=== PATIENT | female | born 1945 | race Caucasian/White ===

== ENCOUNTER 2023-12-16 02:42 | Inpatient (IN) | payer MEDICARE, MEDICAID ==
[2023-12-16] MEDS ORDERED: NOREPINEPHRINE 8 MG/250 ML-D5W 250 ML ONE (02:48)
[2023-12-16] MEDS ORDERED: Ketamine In 0.9 % NaCl 50 MG/5 ML SYRINGE ONE ×2 (03:01→06:52)
[2023-12-16] MEDS ORDERED: Rocuronium Bromide 10 MG/ML (10ML VIAL) ONE ×2 (03:24→06:57)
[2023-12-16] MEDS ORDERED: EPINEPHrine 1 MG/ML VIAL ONE (03:38)
[2023-12-16] MEDS ORDERED: Cefepime 2 GM VIAL ONE (03:39)
[2023-12-16] MEDS ORDERED: Sodium Chloride 0.9% 100 ML ONE (03:39)
[2023-12-16] MEDS ORDERED: LevoFLOXacin 750 mg/D5W 150 ml Premix Bag ONE (03:39)
[2023-12-16 03:42] LABS: Hematocrit 35.4 % (36.0-47.0); Hemoglobin 11.3 g/dL (12.0-16.0); Mean Corpuscular HGB CONC 31.9 g/dL (32.0-36.0); Mean Corpuscular Hemoglobin 28.2 pg (27.0-31.0); Mean Corpuscular Volume 88.3 fL (78.0-98.0); Mean Platelet Volume 10.3 fL (7.4-10.4); Platelet Count 186 10x3/uL (130-400); RBC Distribution Width 15.7 % (11.5-14.5); Red Blood Cell (RBC) Count 4.01 mill/uL (4.20-5.40)
[2023-12-16 03:51] LABS: Actual Bicarbonate (HCO3a) 17.6 mEq/L (22-28); Analyzer IN Cardio ER; Base Excess (BEa) -4.6 mEq/L (-2.0 to +3.0); Calcium, Ionized (arterial) 1.11 mmol/L (1.12-1.30); Carboxyhemoglobin (COHb) 0.3 gm% (0.0-3.0); Hematocrit-ABG 34 % (36.0-47.0); Hemoglobin (Hb) 11.6 g/dL (12.0-16.0); O2 Tension (PaO2), arterial 368.9 mmHg (> 70.0); Potassium - ABG Lab 3.12 mmol/L (3.70-5.30); pH, Arterial 7.468 (7.35-7.45)
[2023-12-16 03:55] LABS: ALV-art Gradient 312.975 mmHg (0-20); CO2 Tension 24.9 mmHg (35.0-45.0); Puncture Site RRA
[2023-12-16 04:00] LABS: INR-International Normal Ratio 1.7; Prothrombin Time 20.3 sec (12.0-14.7)
[2023-12-16 04:07] LABS: ALT (SGPT) Less than 5 U/L (8-55); AST (SGOT) 24 U/L (5-34); Alkaline Phosphatase 262 U/L (40-110); Anion Gap 17 mmol/L (10-20); BUN (Urea Nitrogen) 55 mg/dL (9.8-20.1); Bilirubin, Total 0.6 mg/dL (0.2-1.2); Calc. Creatinine Clearance 0 mL/min (70-130); Calcium 8.6 mg/dL (7.8-10.44); Carbon Dioxide 16 mmol/L (23-31); Chloride 112 mmol/L (98-107); Estimated GFR 16; Globulin 3.7 g/dL (2.4-3.5); Glucose 126 mg/dL (83-110); Potassium 3.2 mmol/L (3.5-5.1); Protein, Total 5.7 g/dL (5.8-8.1); Sodium 142 mmol/L (136-145)
[2023-12-16 04:21] LABS: Band 23 % (5-11); Burr Cells SLIGHT = 2-5 cells HPF (0-1); Metamyelocyte 5 % (0-0); Monocytes 1 % (0-10); Neutrophil 71 % (42-75); Platelet Adequacy Comment Platelets Normal; Polychromasia SLIGHT = 2-3 cells HPF (0-2)
[2023-12-16 04:25] LABS: Troponin I 0.438 ng/mL (< 0.028)
[2023-12-16] MEDS ORDERED: Vasopressin 20 UNITS/ML VIAL ONE (04:30)
[2023-12-16] MEDS: Vancomycin (BATCH) 1.5 GM in Premix 1 BAG IVPB SCH (05:15)
[2023-12-16] MEDS ORDERED: fentaNYL PF 100 MCG/2 ML SYRINGE ONE (05:41)
[2023-12-16] MEDS ORDERED: PROPOFOL 20 ML ONE (05:41)
[2023-12-16] MEDS ORDERED: Iopamidol 30 ML ONE (05:53)
[2023-12-16] MEDS ORDERED: Albumin 5% 500 ML ONE (06:14)
[2023-12-16] MEDS ORDERED: Vasopressin 20 UNITS in Sodium Chloride 0.9% 50 ML IV SCH (06:30)
[2023-12-16] MEDS ORDERED: EPINEPHrine 4 MG in Dextrose 5% in Water 250 ML IV SCH (06:30)
[2023-12-16] MEDS ORDERED: PHENYLEPHRINE-NS 100 MCG/ML 10 ML SYRINGE ONE (06:39)
[2023-12-16 06:52] LABS: Lactic Acid 3.2 mmol/L (0.5-2.2)
[2023-12-16] MEDS ORDERED: Midazolam HCl 2 mg/2 ml Vial ONE (06:52)
[2023-12-16] MEDS: EPINEPHrine 1 MG/ML VIAL ONE (07:34)
[2023-12-16] MEDS ORDERED: Ventilator Sedation Protocol 1 EACH FS SCH (07:45)
[2023-12-16 07:52] LABS: ALV-art Gradient 254.575 mmHg (0-20); Actual Bicarbonate (HCO3a) 13.7 mEq/L (22-28); Base Excess (BEa) -11.8 mEq/L (-2.0 to +3.0); CO2 Tension 29.3 mmHg (35.0-45.0); Calcium, Ionized (arterial) 1.03 mmol/L (1.12-1.30); Carboxyhemoglobin (COHb) 0.3 gm% (0.0-3.0); Hematocrit-ABG 26 % (36.0-47.0); O2 Tension (PaO2), arterial 207.9 mmHg (> 70.0); Potassium - ABG Lab 3.13 mmol/L (3.70-5.30); Puncture Site RRA; pH, Arterial 7.287 (7.35-7.45)
[2023-12-16] MEDS: NOREPINEPHRINE 8 MG/250 ML-D5W 250 ML IVPB SCH (08:02)
[2023-12-16] MEDS: Hydrocortisone Sod Succ/PF 100 mg/2 ml Vial IVP SCH ×2 (08:07→12:21)
[2023-12-16] MEDS: Pantoprazole 40 MG VIAL IVP SCH (08:07)
[2023-12-16] MEDS: Sodium Bicarb 50 MEQ/50 ML Abboject 8.4% SYRINGE IVP SCH (08:11)
[2023-12-16] MEDS ORDERED: Fentanyl BOLUS 250 ML IVPB PRN (08:15)
[2023-12-16] MEDS ORDERED: Lorazepam 2 MG/ML VIAL SLOW IVP PRN (08:15)
[2023-12-16] MEDS ORDERED: Morphine 2 MG/ML VIAL SLOW IVP PRN (08:15)
[2023-12-16] MEDS ORDERED: Propofol BOLUS 1,000 MG/100 ML VIAL IV PRN (08:15)
[2023-12-16] MEDS ORDERED: Fentanyl CADD 100 ML IV SCH (08:15)
[2023-12-16 11:10] LABS: Magnesium 1.9 mg/dL (1.6-2.6)
[2023-12-16 11:57] VITALS: BMI 22.1
[2023-12-16] MEDS: Lactated Ringer's 1,000 ML IV SCH (12:35)
[2023-12-16 14:51] LABS: Bacteria/HPF 4+ HPF (None Seen); CAUTI Indications for Culture Alt mental st,lethar; RBC/HPF Greater than 50 HPF (0-3); Renal Epithelial 0-3 HPF (None Seen); Squamous Epithelial None Seen HPF (0-3); WBC/HPF Greater than 50 HPF (0-3)
[2023-12-16 14:53] LABS: Bilirubin Negative (Negative); Blood, Urine Large (Negative); Clarity Cloudy (Clear); Glucose, Urine (Dipstick) 250 mg/dL (Negative); Ketone, Urine Negative (Negative); Leukocyte Large (Negative); Nitrite Positive (Negative); Protein, Urine (Dipstick) > or equal to 300 mg/dL (Neg-Trace); Specific Gravity, Urine 1.025 (1.005-1.030); Urobilinogen 0.2 mg/dL (Less than 2); pH, Urine 7.5 (5.0-9.0)
[2023-12-16 14:55] LABS: Urine Culture Reflex Yes Yes
[2023-12-16] MEDS: Propofol 1,000 MG/100 ML VIAL IV PRN (20:47)
[2023-12-17] MEDS: Cefepime 2 GM in Sodium Chloride 0.9% 100 ML IVPB SCH ×2 (04:02→23:50)
[2023-12-17 05:09] LABS: ALT (SGPT) 14 U/L (8-55); AST (SGOT) 24 U/L (5-34); Albumin 1.9 g/dL (3.4-4.8); Alkaline Phosphatase 91 U/L (40-110); Anion Gap 20 mmol/L (10-20); BUN (Urea Nitrogen) 43 mg/dL (9.8-20.1); Bilirubin, Total 0.7 mg/dL (0.2-1.2); Calc. Creatinine Clearance 21 mL/min (70-130); Carbon Dioxide 18 mmol/L (23-31); Chloride 109 mmol/L (98-107); Estimated GFR 22; Globulin 3.3 g/dL (2.4-3.5); Glucose 232 mg/dL (83-110); Potassium 3.7 mmol/L (3.5-5.1); Protein, Total 5.2 g/dL (5.8-8.1); Sodium 143 mmol/L (136-145)
[2023-12-17 05:38] LABS: Hematocrit 30.9 % (36.0-47.0); Hemoglobin 10.2 g/dL (12.0-16.0); Mean Corpuscular Hemoglobin 27.6 pg (27.0-31.0); Mean Corpuscular Volume 83.5 fL (78.0-98.0); Mean Platelet Volume 10.9 fL (7.4-10.4); Platelet Count 183 10x3/uL (130-400); RBC Distribution Width 15.9 % (11.5-14.5)
[2023-12-17 06:09] LABS: Anisocytosis SLIGHT = 6-15 cells HPF (0-5); Band 25 % (5-11); Burr Cells MODERATE= 6-15 cells HPF (0-1); Lymphocytes 1 % (21-51); Macrocytosis SLIGHT = 6-15 cells HPF (0-5); Monocytes 7 % (0-10); Neutrophil 68 % (42-75); Platelet Adequacy Comment Platelets Normal; Poikilocytosis SLIGHT = 6-15 cells HPF (0-5); Polychromasia SLIGHT = 2-3 cells HPF (0-2)
[2023-12-17] MEDS: DC Sedation Protocol FS ONE (17:55)
[2023-12-17] MEDS ORDERED: Pharmacy to Dose : CEFEPIME IVPB PRN (20:42)
[2023-12-17] MEDS ORDERED: Vancomycin HCl 500 MG in Sodium Chloride 0.9% 100 ML IVPB SCH (22:00)
[2023-12-18] MEDS: Sodium Chloride 0.45% 1,000 ML IV SCH (09:14)
[2023-12-18] MEDS: Cefepime 1 GM in Sodium Chloride 0.9% 100 ML IVPB SCH (12:36)
[2023-12-19 05:21] LABS: Hematocrit 29.2 % (36.0-47.0); Hemoglobin 9.4 g/dL (12.0-16.0); Mean Corpuscular HGB CONC 32.2 g/dL (32.0-36.0); Mean Corpuscular Hemoglobin 27.9 pg (27.0-31.0); Mean Corpuscular Volume 86.6 fL (78.0-98.0); Mean Platelet Volume 11.5 fL (7.4-10.4); Platelet Count 136 10x3/uL (130-400); Red Blood Cell (RBC) Count 3.37 mill/uL (4.20-5.40)
[2023-12-19 05:38] LABS: ALT (SGPT) 40 U/L (8-55); AST (SGOT) 46 U/L (5-34); Albumin 1.9 g/dL (3.4-4.8); Alkaline Phosphatase 120 U/L (40-110); Anion Gap 18 mmol/L (10-20); BUN (Urea Nitrogen) 58 mg/dL (9.8-20.1); Bilirubin, Total 0.4 mg/dL (0.2-1.2); Calc. Creatinine Clearance 24 mL/min (70-130); Calcium 8.5 mg/dL (7.8-10.44); Carbon Dioxide 18 mmol/L (23-31); Chloride 117 mmol/L (98-107); Estimated GFR 32; Globulin 3.4 g/dL (2.4-3.5); Glucose 115 mg/dL (83-110); Potassium 3.5 mmol/L (3.5-5.1); Protein, Total 5.3 g/dL (5.8-8.1); Sodium 149 mmol/L (136-145)
[2023-12-19 05:46] LABS: Band 1 % (5-11); Lymphocytes 2 % (21-51); Monocytes 1 % (0-10); Neutrophil 96 % (42-75); Platelet Adequacy Comment Platelets Normal; RBC Morphology Within Normal Limits
[2023-12-19 09:27] LABS: Magnesium 2.2 mg/dL (1.6-2.6); Phosphorus 3.7 mg/dL (2.3-4.7)
[2023-12-20 07:53] LABS: #Basophils Less than 0.03 10x3/uL (0.0-0.2); #Eosinphils Less than 0.03 10x3/uL (0.0-0.7); %Basophils 0.1 % (0.0-1.0); %Lymphocytes 8.4 % (21.0-51.0); %Monocytes 5.5 % (0.0-10.0); %Neutrophils 84.7 % (42.0-75.0); Hematocrit 29.8 % (36.0-47.0); Hemoglobin 9.4 g/dL (12.0-16.0); Mean Corpuscular HGB CONC 31.5 g/dL (32.0-36.0); Mean Corpuscular Hemoglobin 27.8 pg (27.0-31.0); Mean Corpuscular Volume 88.2 fL (78.0-98.0); Platelet Count 139 10x3/uL (130-400); RBC Distribution Width 16.1 % (11.5-14.5); Red Blood Cell (RBC) Count 3.38 mill/uL (4.20-5.40)
[2023-12-20 07:54] LABS: ALT (SGPT) 39 U/L (8-55); AST (SGOT) 28 U/L (5-34); Albumin 2.1 g/dL (3.4-4.8); Alkaline Phosphatase 82 U/L (40-110); Anion Gap 15 mmol/L (10-20); BUN (Urea Nitrogen) 61 mg/dL (9.8-20.1); Bilirubin, Total 0.5 mg/dL (0.2-1.2); Calc. Creatinine Clearance 35 mL/min (70-130); Calcium 8.4 mg/dL (7.8-10.44); Carbon Dioxide 17 mmol/L (23-31); Chloride 121 mmol/L (98-107); Estimated GFR 39; Globulin 3.4 g/dL (2.4-3.5); Glucose 153 mg/dL (83-110); Potassium 3.3 mmol/L (3.5-5.1); Protein, Total 5.5 g/dL (5.8-8.1); Sodium 150 mmol/L (136-145)
[2023-12-20] MEDS: Hydrocortisone Sod Succ/PF 100 mg/2 ml Vial IVP SCH (17:06)
[2023-12-20] MEDS: Levothyroxine Sodium 100 MCG TAB PO SCH (17:13)
[2023-12-20] MEDS: Dextrose 5% in Water 1,000 ML IV SCH (17:13)
[2023-12-20] MEDS: Potassium Bicarbonate/Cit Ac 25 MEQ TAB PO SCH (17:14)
[2023-12-20] MEDS: Carbidopa/Levodopa 25-250 mg Tablet PO SCH (17:14)
[2023-12-20] MEDS: Divalproex Sodium 125 mg Sprinkle Capsule PO SCH (21:30)
[2023-12-20] MEDS: cefTRIAXone\\ROCEPHIN 2 GM in Sodium Chloride 0.9% 100 ML IVPB SCH (22:23)
[2023-12-21 05:32] LABS: #Basophils Less than 0.03 10x3/uL (0.0-0.2); #Eosinphils Less than 0.03 10x3/uL (0.0-0.7); %Basophils 0.2 % (0.0-1.0); %Eosinophils 0.1 % (0.0-10.0); %Lymphocytes 8.9 % (21.0-51.0); %Monocytes 5.6 % (0.0-10.0); %Neutrophils 81.2 % (42.0-75.0); Hematocrit 30.6 % (36.0-47.0); Hemoglobin 9.7 g/dL (12.0-16.0); Mean Corpuscular HGB CONC 31.7 g/dL (32.0-36.0); Mean Corpuscular Hemoglobin 27.7 pg (27.0-31.0); Mean Corpuscular Volume 87.4 fL (78.0-98.0); Mean Platelet Volume 12.2 fL (7.4-10.4); Platelet Count 173 10x3/uL (130-400); RBC Distribution Width 15.9 % (11.5-14.5)
[2023-12-21] MEDS: Levothyroxine Sodium 100 MCG TAB PO SCH (06:10)
[2023-12-21 06:16] LABS: Anion Gap 10 mmol/L (10-20); BUN (Urea Nitrogen) 51 mg/dL (9.8-20.1); Calc. Creatinine Clearance 42 mL/min (70-130); Calcium 8.2 mg/dL (7.8-10.44); Carbon Dioxide 19 mmol/L (23-31); Chloride 120 mmol/L (98-107); Estimated GFR 47; Glucose 237 mg/dL (83-110); Sodium 146 mmol/L (136-145)
[2023-12-21 06:43] LABS: Free T4 (Free Thyroxine) 0.71 ng/dL (0.70-1.48); Thyroid Stimulating Hormone 1.8034 uIU/mL (0.35-4.94)
[2023-12-21 11:09] VITALS: BMI 23.8
[2023-12-21] MEDS: Levothyroxine Sodium 25 MCG TAB PO SCH (15:27)
[2023-12-21] MEDS: Hydrocortisone Sod Succ/PF 100 mg/2 ml Vial IVP SCH (18:31)
[2023-12-21 20:34] LABS: Anion Gap 14 mmol/L (10-20); BUN (Urea Nitrogen) 43 mg/dL (9.8-20.1); Calc. Creatinine Clearance 46 mL/min (70-130); Calcium 8.1 mg/dL (7.8-10.44); Carbon Dioxide 18 mmol/L (23-31); Chloride 114 mmol/L (98-107); Estimated GFR 53; Glucose 206 mg/dL (83-110); Potassium 3.4 mmol/L (3.5-5.1); Sodium 143 mmol/L (136-145)
[2023-12-22] MEDS: Levothyroxine Sodium 125 MCG TAB PO SCH (05:53)
[2023-12-22 06:04] LABS: Anion Gap 14 mmol/L (10-20); BUN (Urea Nitrogen) 38 mg/dL (9.8-20.1); Calc. Creatinine Clearance 58 mL/min (70-130); Calcium 7.9 mg/dL (7.8-10.44); Carbon Dioxide 21 mmol/L (23-31); Chloride 113 mmol/L (98-107); Estimated GFR 71; Glucose 148 mg/dL (83-110); Potassium 2.8 mmol/L (3.5-5.1); Sodium 145 mmol/L (136-145)
[2023-12-22] MEDS ORDERED: Electrolyte Replacement Protocol 1 EACH FS SCH (07:45)
[2023-12-22 08:35] LABS: Magnesium 1.6 mg/dL (1.6-2.6)
[2023-12-22] MEDS: Potassium Chloride 20 MEQ in Premix 1 BAG IVPB SCH (09:11)
[2023-12-22] MEDS: Potassium Chloride 40 MEQ in Premix 1 BAG IVPB SCH (09:22)
[2023-12-22] MEDS: Potassium Bicarbonate/Cit Ac 25 MEQ TAB PO SCH (10:40)
[2023-12-22] MEDS: Magnesium 2 GM/50 ML(in water) 2 GM in Premix 1 BAG IVPB SCH (11:32)
[2023-12-22] MEDS: Enoxaparin 40 MG (0.4 mL) SYRINGE SC SCH (15:19)
[2023-12-22 20:36] LABS: Potassium 3.7 mmol/L (3.5-5.1)
[2023-12-23 06:12] LABS: Anion Gap 11 mmol/L (10-20); BUN (Urea Nitrogen) 28 mg/dL (9.8-20.1); Calc. Creatinine Clearance 62 mL/min (70-130); Calcium 8.1 mg/dL (7.8-10.44); Carbon Dioxide 28 mmol/L (23-31); Chloride 110 mmol/L (98-107); Estimated GFR 77; Glucose 163 mg/dL (83-110); Potassium 3.4 mmol/L (3.5-5.1); Sodium 146 mmol/L (136-145)
[2023-12-23] MEDS: Potassium Chloride 20 MEQ TAB PO SCH (09:12)
[2023-12-23] MEDS: Enoxaparin 40 MG (0.4 mL) SYRINGE SC SCH (09:13)
[2023-12-23] MEDS: Hydrocortisone Sod Succ/PF 100 mg/2 ml Vial IVP SCH (09:14)
[2023-12-24 04:34] LABS: #Basophils 0.04 10x3/uL (0.0-0.2); %Basophils 0.3 % (0.0-1.0); %Eosinophils 3.3 % (0.0-10.0); %Lymphocytes 15.3 % (21.0-51.0); %Monocytes 5.7 % (0.0-10.0); %Neutrophils 73.3 % (42.0-75.0); Hematocrit 36.8 % (36.0-47.0); Hemoglobin 11.6 g/dL (12.0-16.0); Mean Corpuscular HGB CONC 31.5 g/dL (32.0-36.0); Mean Corpuscular Hemoglobin 26.9 pg (27.0-31.0); Mean Corpuscular Volume 85.4 fL (78.0-98.0); Mean Platelet Volume 11.1 fL (7.4-10.4); Platelet Count 284 10x3/uL (130-400); RBC Distribution Width 16.1 % (11.5-14.5); Red Blood Cell (RBC) Count 4.31 mill/uL (4.20-5.40)
[2023-12-24 04:49] LABS: Anion Gap 12 mmol/L (10-20); BUN (Urea Nitrogen) 27 mg/dL (9.8-20.1); Calc. Creatinine Clearance 66 mL/min (70-130); Calcium 8.5 mg/dL (7.8-10.44); Carbon Dioxide 29 mmol/L (23-31); Chloride 111 mmol/L (98-107); Estimated GFR 83; Glucose 129 mg/dL (83-110); Potassium 3.7 mmol/L (3.5-5.1); Sodium 148 mmol/L (136-145)
[2023-12-24] MEDS: Lorazepam 2 MG/ML VIAL ONE (08:13)
[2023-12-24] MEDS: Lorazepam 2 MG/ML VIAL SLOW IVP SCH (09:00)
[2023-12-24] MEDS ORDERED: Lidocaine 1% PF 5 ML VIAL ONE (14:43)
[2023-12-24] MEDS ORDERED: Sodium Bicarbonate 2.5 MEQ/5 ML SDV ONE (14:43)
[2023-12-25 08:04] LABS: Anion Gap 14 mmol/L (10-20); BUN (Urea Nitrogen) 22 mg/dL (9.8-20.1); Calc. Creatinine Clearance 71 mL/min (70-130); Calcium 8.7 mg/dL (7.8-10.44); Carbon Dioxide 30 mmol/L (23-31); Chloride 105 mmol/L (98-107); Estimated GFR 89; Glucose 123 mg/dL (83-110); Potassium 3.7 mmol/L (3.5-5.1); Sodium 145 mmol/L (136-145)
[2023-12-25 11:25] VITALS: TEMP 98.2
[2023-12-25 15:11] VITALS: BP 123/76
== END 2023-12-25 18:33 | DRG 853 ==
LOC: ERS 02:42 → SDC 06:30 → CCU 06:30 → SURG A 12-18 17:34
PROVIDERS: ADMIT Student in an Organized Health Care Education/Training Program; ATTEND Internal Medicine
PROC: 0T788DZ Dilation of Bilateral Ureters with Intraluminal Device, Via Natural or Artificial Opening Endoscopic (ICD-10-PCS; principal; 2023-12-16)
PROC: 3E033XZ Introduction of Vasopressor into Peripheral Vein, Percutaneous Approach (ICD-10-PCS; 2023-12-16)
PROC: 4A133R1 Monitoring of Arterial Saturation, Peripheral, Percutaneous Approach (ICD-10-PCS; 2023-12-16)
PROC: 02HV33Z Insertion of Infusion Device into Superior Vena Cava, Percutaneous Approach (ICD-10-PCS; 2023-12-16)
PROC: 0BH17EZ Insertion of Endotracheal Airway into Trachea, Via Natural or Artificial Opening (ICD-10-PCS; 2023-12-16)
PROC: 5A1945Z Respiratory Ventilation, 24-96 Consecutive Hours (ICD-10-PCS; 2023-12-16)
PROC: B548ZZA Ultrasonography of Superior Vena Cava, Guidance (ICD-10-PCS; 2023-12-24)
DX: A41.51 Sepsis due to Escherichia coli [E. coli] (principal); G93.41 Metabolic encephalopathy; R65.21 Severe sepsis with septic shock; J96.01 Acute respiratory failure with hypoxia; N17.9 Acute kidney failure, unspecified; N13.6 Pyonephrosis; I69.351 Hemiplegia and hemiparesis following cerebral infarction affecting right dominant side; E87.20 Acidosis, unspecified; Z16.11 Resistance to penicillins; Z16.29 Resistance to other single specified antibiotic; E87.0 Hyperosmolality and hypernatremia; F03.918 Unspecified dementia, unspecified severity, with other behavioral disturbance; F03.93 Unspecified dementia, unspecified severity, with mood disturbance; E87.6 Hypokalemia; K56.41 Fecal impaction; G40.909 Epilepsy, unspecified, not intractable, without status epilepticus; E78.5 Hyperlipidemia, unspecified; I11.0 Hypertensive heart disease with heart failure; R13.10 Dysphagia, unspecified; R00.1 Bradycardia, unspecified; K21.9 Gastro-esophageal reflux disease without esophagitis; G47.00 Insomnia, unspecified; G20.B1 Parkinson's disease with dyskinesia, without mention of fluctuations; B96.89 Other specified bacterial agents as the cause of diseases classified elsewhere; I50.9 Heart failure, unspecified; A41.4 Sepsis due to anaerobes; J45.909 Unspecified asthma, uncomplicated; E03.9 Hypothyroidism, unspecified; Z66 Do not resuscitate; Z74.01 Bed confinement status; Z79.899 Other long term (current) drug therapy; Z79.82 Long term (current) use of aspirin; Z79.890 Hormone replacement therapy
CPT/HCPCS: 31500; 36415; 36416; 36556; 36569; 36600; 70450; 70551; 71045; 74176; 74420; 76937; 77001; 80048; 80053; 81001; 82805; 83605; 83735; 83880; 84100; 84439; 84443; 84481; 84484; 85025; 85610; 85730; 87040; 87077; 87086; 87149; 87186; 93005; 93010; 94002; 94003; 94760; 96365; 96367; 96375; C2617; C9113; J0171; J0692; J0696; J1650; J1720; J1956; J2060; J2250; J2704; J3370; J3475; J3480; J3490; J7070; J7120; P9045; Q9967

== ENCOUNTER 2024-06-29 19:53 | Inpatient (IN) | payer MEDICARE, MEDICAID ==
[2024-06-29 20:35] LABS: #Basophils 0.05 10x3/uL (0.0-0.2); %Basophils 0.5 % (0.0-1.0); %Eosinophils 3.5 % (0.0-10.0); %Lymphocytes 15.4 % (21.0-51.0); %Monocytes 4.7 % (0.0-10.0); %Neutrophils 74.4 % (42.0-75.0); Hematocrit 27.3 % (36.0-47.0); Hemoglobin 7.9 g/dL (12.0-16.0); Mean Corpuscular HGB CONC 28.9 g/dL (32.0-36.0); Mean Corpuscular Hemoglobin 25.9 pg (27.0-31.0); Mean Corpuscular Volume 89.5 fL (78.0-98.0); Mean Platelet Volume 10.5 fL (7.4-10.4); Platelet Count 432 10x3/uL (130-400); RBC Distribution Width 18.6 % (11.5-14.5); Red Blood Cell (RBC) Count 3.05 mill/uL (4.20-5.40)
[2024-06-29 20:50] LABS: ALT (SGPT) 8 U/L (8-55); AST (SGOT) 24 U/L (5-34); Albumin 1.7 g/dL (3.4-4.8); Alkaline Phosphatase 81 U/L (40-110); Anion Gap 18 mmol/L (10-20); BUN (Urea Nitrogen) 101 mg/dL (9.8-20.1); Bilirubin, Total 0.2 mg/dL (0.2-1.2); Calc. Creatinine Clearance 0 mL/min (70-130); Calcium 9.4 mg/dL (7.8-10.44); Carbon Dioxide 16 mmol/L (23-31); Chloride 127 mmol/L (98-107); Estimated GFR 23; Globulin 6.5 g/dL (2.4-3.5); Glucose 212 mg/dL (83-110); Potassium 3.5 mmol/L (3.5-5.1); Protein, Total 8.2 g/dL (5.8-8.1); Sodium 157 mmol/L (136-145)
[2024-06-29 20:59] LABS: Bacteria/HPF 1+ HPF (None Seen); Bilirubin Negative (Negative); Blood, Urine 3+ (Negative); CAUTI Indications for Culture Alt mental st,lethar; Clarity Extra Turbid (Clear); Glucose, Urine (Dipstick) 50 mg/dL (Negative); Ketone, Urine Negative (Negative); Leukocyte 500 Leu/uL (Negative); Nitrite Negative (Negative); Protein, Urine (Dipstick) 70 mg/dL (Neg-Trace); RBC/HPF 21-50 HPF (0-3); Specific Gravity, Urine 1.013 (1.002-1.036); Squamous Epithelial 0-3 HPF (0-3); Transitional Epithelial 0-3 HPF (None Seen); Urobilinogen Normal mg/dL (Less than 2); WBC/HPF Greater than 50 HPF (0-3)
[2024-06-29 21:00] LABS: Urine Culture Reflex Yes Yes
[2024-06-29 21:01] LABS: Anisocytosis SLIGHT = 6-15 cells HPF (0-5); Platelet Adequacy Comment Platelets Increased; Polychromasia SLIGHT = 2-3 cells HPF (0-2)
[2024-06-29] MEDS ORDERED: Sodium Chloride 0.9% 1,000 ML IV SCH (22:45)
[2024-06-29] MEDS ORDERED: cefTRIAXone\\ROCEPHIN 1 GM in Sodium Chloride 0.9% 100 ML IVPB SCH (23:00)
[2024-06-29] MEDS ORDERED: Ondansetron PF 4 MG/2 ML Vial IVP PRN (23:59)
[2024-06-29] MEDS ORDERED: Acetaminophen 325 MG TAB PO PRN (23:59)
[2024-06-30] MEDS: Vancomycin (BATCH) 1.25 GM in Premix 1 BAG IVPB SCH (00:59)
[2024-06-30] MEDS: Dextrose 5 %-0.45 % NaCl 1,000 ML IV SCH (01:15)
[2024-06-30] MEDS: Sodium Bicarb 50 MEQ/50 ML Abboject 8.4% SYRINGE IVP SCH (01:17)
[2024-06-30] MEDS: Piperacillin/Tazobactam 3.375 GM in Sodium Chloride 0.9% 100 ML IVPB SCH ×2 (01:27→04:04)
[2024-06-30] MEDS: Sodium Bicarb 50 mEq/50 ML VIAL IVP SCH (01:28)
[2024-06-30 05:09] LABS: #Basophils 0.05 10x3/uL (0.0-0.2); %Basophils 0.6 % (0.0-1.0); %Lymphocytes 17.1 % (21.0-51.0); %Monocytes 4.8 % (0.0-10.0); %Neutrophils 72.2 % (42.0-75.0); Hematocrit 30.3 % (36.0-47.0); Hemoglobin 8.5 g/dL (12.0-16.0); Mean Corpuscular HGB CONC 28.1 g/dL (32.0-36.0); Mean Corpuscular Hemoglobin 25.8 pg (27.0-31.0); Mean Corpuscular Volume 91.8 fL (78.0-98.0); Mean Platelet Volume 10.6 fL (7.4-10.4); Platelet Count 396 10x3/uL (130-400); RBC Distribution Width 18.5 % (11.5-14.5)
[2024-06-30 05:39] LABS: Hypochromia SLIGHT = 6-15 cells HPF (0-5); Platelet Adequacy Comment Platelets Normal
[2024-06-30 05:53] LABS: Anion Gap 17 mmol/L (10-20); BUN (Urea Nitrogen) 93 mg/dL (9.8-20.1); Calc. Creatinine Clearance 22 mL/min (70-130); Calcium 8.6 mg/dL (7.8-10.44); Carbon Dioxide 22 mmol/L (23-31); Chloride 127 mmol/L (98-107); Estimated GFR 27; Glucose 247 mg/dL (83-110); Sodium 163 mmol/L (136-145)
[2024-06-30] MEDS ORDERED: Piperacillin/Tazobactam 2.25 GM in Sodium Chloride 0.9% 100 ML IVPB SCH (06:00)
[2024-06-30] MEDS: Dextrose 5% in Water 1,000 ML IV SCH ×2 (10:01→14:48)
[2024-06-30] MEDS ORDERED: Dextrose 50% Abboject 50 ML SYRINGE SLOW IVP PRN (10:53)
[2024-06-30] MEDS ORDERED: Glucagon 1 MG/ML KIT IM PRN (10:53)
[2024-06-30 11:32] LABS: Sodium 164 mmol/L (136-145)
[2024-06-30] MEDS: Insulin Lispro 100 UNIT/ML 10 ML VIAL SC PRN ×2 (12:23→20:34)
[2024-06-30 13:54] LABS: Magnesium 2.4 mg/dL (1.6-2.6); Potassium 3.1 mmol/L (3.5-5.1)
[2024-06-30] MEDS ORDERED: Electrolyte Replacement Protocol FS PRN (15:00)
[2024-06-30] MEDS ORDERED: Polyvinyl Alcohol 1.4%/Povidone 0.6% Opth Drops EA EYE PRN (16:27)
[2024-06-30 18:02] LABS: Magnesium 2.2 mg/dL (1.6-2.6); Potassium 2.7 mmol/L (3.5-5.1)
[2024-06-30 18:09] LABS: Sodium 156 mmol/L (136-145)
[2024-06-30] MEDS: Potassium Bicarbonate/Cit Ac 20 MEQ TAB PER TUBE SCH (21:58)
[2024-06-30] MEDS: Docusate 100 MG CAP PO SCH (21:59)
[2024-06-30] MEDS: Cetirizine HCl 10 MG TAB PO SCH (22:01)
[2024-06-30] MEDS: Famotidine 20 MG TAB PO SCH (22:02)
[2024-06-30] MEDS: Divalproex Sodium 125 mg Sprinkle Capsule PO SCH (22:02)
[2024-06-30] MEDS: Carbidopa/Levodopa 25-250 mg Tablet PO SCH (22:03)
[2024-06-30] MEDS: Memantine 10 MG TAB PO SCH (22:04)
[2024-06-30] MEDS: Carvedilol 25 MG TAB PO SCH (22:04)
[2024-06-30] MEDS: traZODone HCl 50 MG TAB PO SCH (22:05)
[2024-06-30] MEDS: Atorvastatin Calcium 40 MG TAB PO SCH (22:05)
[2024-06-30] MEDS: Heparin 5,000 UNITS/ML VIAL SC SCH (22:06)
[2024-06-30 23:11] LABS: Sodium 153 mmol/L (136-145)
[2024-06-30 23:24] LABS: Magnesium 2.1 mg/dL (1.6-2.6); Potassium 2.6 mmol/L (3.5-5.1)
[2024-07-01] MEDS: Levothyroxine Sodium 100 MCG TAB PO SCH (05:39)
[2024-07-01 06:31] LABS: Magnesium 2.2 mg/dL (1.6-2.6); Potassium 4.2 mmol/L (3.5-5.1)
[2024-07-01 06:43] LABS: Sodium 159 mmol/L (136-145)
[2024-07-01 07:19] VITALS: BMI 26.9
[2024-07-01] MEDS ORDERED: Iopamidol 30 ML ONE (07:52)
[2024-07-01] MEDS ORDERED: Famotidine/PF 20 mg/2ml Vial ONE (09:39)
[2024-07-01] MEDS ORDERED: PROPOFOL 20 ML ONE (09:41)
[2024-07-01] MEDS ORDERED: Lidocaine 1% PF 5 ML VIAL ONE (09:44)
[2024-07-01] MEDS ORDERED: PHENYLEPHRINE-NS 100 MCG/ML 10 ML SYRINGE ONE (10:02)
[2024-07-01] MEDS: Dextrose 5% in Water 1,000 ML IV SCH ×3 (12:46→23:17)
[2024-07-01 12:53] LABS: Anion Gap 16 mmol/L (10-20); BUN (Urea Nitrogen) 66 mg/dL (9.8-20.1); Calc. Creatinine Clearance 38 mL/min (70-130); Calcium 8.6 mg/dL (7.8-10.44); Carbon Dioxide 23 mmol/L (23-31); Chloride 124 mmol/L (98-107); Estimated GFR 38; Glucose 165 mg/dL (83-110); Magnesium 2.1 mg/dL (1.6-2.6); Sodium 158 mmol/L (136-145)
[2024-07-01] MEDS: Aspirin Chewable 81 MG TAB PO SCH (12:54)
[2024-07-01] MEDS: Multivitamin W/ Minerals 1 TAB PO SCH (12:55)
[2024-07-01] MEDS: Senokot 8.6 MG TAB PO SCH (12:55)
[2024-07-01] MEDS: Sertraline 100 MG TAB PO SCH (12:55)
[2024-07-01] MEDS: Spironolactone 25 MG TAB PO SCH (12:56)
[2024-07-01] MEDS: Piperacillin/Tazobactam 3.375 GM in Sodium Chloride 0.9% 100 ML IVPB SCH (14:17)
[2024-07-01 17:04] LABS: Potassium 3.4 mmol/L (3.5-5.1)
[2024-07-01 17:23] LABS: Sodium 159 mmol/L (136-145)
[2024-07-01 17:24] LABS: Anion Gap 16 mmol/L (10-20); BUN (Urea Nitrogen) 61 mg/dL (9.8-20.1); Calc. Creatinine Clearance 38 mL/min (70-130); Calcium 8.5 mg/dL (7.8-10.44); Carbon Dioxide 25 mmol/L (23-31); Chloride 121 mmol/L (98-107); Estimated GFR 38; Glucose 200 mg/dL (83-110); Potassium 3.4 mmol/L (3.5-5.1); Sodium 159 mmol/L (136-145)
[2024-07-01] MEDS: Potassium Chloride 20 MEQ TAB PO SCH (21:19)
[2024-07-01] MEDS: Magnesium 2 GM/50 ML(in water) 2 GM in Premix 1 BAG IVPB SCH (21:24)
[2024-07-01] MEDS: Sodium Chloride 0.9% 1,000 ML IV SCH (22:58)
[2024-07-01 23:07] LABS: Potassium 3.6 mmol/L (3.5-5.1)
[2024-07-01 23:08] LABS: Magnesium 1.9 mg/dL (1.6-2.6)
[2024-07-01 23:09] LABS: Sodium 158 mmol/L (136-145)
[2024-07-01] MEDS: Electrolyte Replacement Protocol 1 EACH FS ONE (23:16)
[2024-07-02 04:40] LABS: #Basophils 0.04 10x3/uL (0.0-0.2); %Basophils 0.4 % (0.0-1.0); %Eosinophils 2.3 % (0.0-10.0); %Lymphocytes 15.1 % (21.0-51.0); %Neutrophils 77.1 % (42.0-75.0); Hematocrit 29.4 % (36.0-47.0); Hemoglobin 8.1 g/dL (12.0-16.0); Mean Corpuscular HGB CONC 27.6 g/dL (32.0-36.0); Mean Corpuscular Hemoglobin 25.6 pg (27.0-31.0); Mean Platelet Volume 10.2 fL (7.4-10.4); Platelet Count 348 10x3/uL (130-400); RBC Distribution Width 18.5 % (11.5-14.5); Red Blood Cell (RBC) Count 3.16 mill/uL (4.20-5.40)
[2024-07-02 04:57] LABS: Anion Gap 12 mmol/L (10-20); BUN (Urea Nitrogen) 51 mg/dL (9.8-20.1); Calc. Creatinine Clearance 42 mL/min (70-130); Calcium 8.2 mg/dL (7.8-10.44); Carbon Dioxide 22 mmol/L (23-31); Chloride 122 mmol/L (98-107); Estimated GFR 43; Glucose 279 mg/dL (83-110); Magnesium 2.5 mg/dL (1.6-2.6); Potassium 3.5 mmol/L (3.5-5.1); Sodium 152 mmol/L (136-145)
[2024-07-02 05:36] LABS: Platelet Adequacy Comment Platelets Normal; Polychromasia SLIGHT = 2-3 cells HPF (0-2)
[2024-07-02 10:33] LABS: Anion Gap 13 mmol/L (10-20); BUN (Urea Nitrogen) 46 mg/dL (9.8-20.1); Calc. Creatinine Clearance 44 mL/min (70-130); Calcium 7.9 mg/dL (7.8-10.44); Carbon Dioxide 21 mmol/L (23-31); Chloride 119 mmol/L (98-107); Estimated GFR 45; Glucose 272 mg/dL (83-110); Magnesium 2.2 mg/dL (1.6-2.6); Potassium 3.2 mmol/L (3.5-5.1); Sodium 150 mmol/L (136-145)
[2024-07-02] MEDS: Potassium Chloride 20 MEQ TAB PO SCH ×2 (11:20→22:02)
[2024-07-02] MEDS: Magnesium 2 GM/50 ML(in water) 2 GM in Premix 1 BAG IVPB SCH (11:20)
[2024-07-02 17:21] LABS: Anion Gap 12 mmol/L (10-20); BUN (Urea Nitrogen) 40 mg/dL (9.8-20.1); Calc. Creatinine Clearance 40 mL/min (70-130); Calcium 7.7 mg/dL (7.8-10.44); Carbon Dioxide 22 mmol/L (23-31); Chloride 113 mmol/L (98-107); Estimated GFR 40; Glucose 306 mg/dL (83-110); Potassium 3.2 mmol/L (3.5-5.1); Sodium 144 mmol/L (136-145)
[2024-07-02 17:22] LABS: Magnesium 2.7 mg/dL (1.6-2.6); Potassium 3.5 mmol/L (3.5-5.1); Sodium 143 mmol/L (136-145)
[2024-07-02] MEDS: LevoFLOXacin 500 MG TAB PO SCH (17:57)
[2024-07-02] MEDS: LevoFLOXacin 500 mg/D5W 500 MG in Premix 1 BAG IVPB SCH (18:06)
[2024-07-02] MEDS: Loratadine 10 MG TAB PO SCH (22:03)
[2024-07-02 22:39] LABS: Magnesium 2.6 mg/dL (1.6-2.6); Potassium 3.3 mmol/L (3.5-5.1); Sodium 141 mmol/L (136-145)
[2024-07-03 08:15] LABS: Magnesium 2.3 mg/dL (1.6-2.6); Potassium 3.7 mmol/L (3.5-5.1); Sodium 142 mmol/L (136-145)
[2024-07-03 09:03] LABS: Anion Gap 16 mmol/L (10-20); BUN (Urea Nitrogen) 34 mg/dL (9.8-20.1); Calc. Creatinine Clearance 45 mL/min (70-130); Calcium 8.6 mg/dL (7.8-10.44); Carbon Dioxide 16 mmol/L (23-31); Chloride 113 mmol/L (98-107); Estimated GFR 47; Glucose 126 mg/dL (83-110); Potassium 3.7 mmol/L (3.5-5.1); Sodium 141 mmol/L (136-145)
[2024-07-03] MEDS: Calcitriol 0.25 MCG CAP PO SCH (09:10)
[2024-07-03 11:32] VITALS: BMI 26.9
[2024-07-03] MEDS: LevoFLOXacin 250 MG TAB PO SCH (14:57)
[2024-07-03 17:18] LABS: Lactic Acid 2.09 mmol/L (0.5-2.2)
[2024-07-03 23:13] VITALS: BP 123/80; TEMP 99
== END 2024-07-03 20:40 | DRG 660 ==
LOC: ERS 19:53 → INTOOBSV 22:41 → MSONC 22:41 → OBSVTOIN 06-30 16:17
PROVIDERS: ADMIT Family Medicine; ATTEND Internal Medicine
PROC: 0TC78ZZ Extirpation of Matter from Left Ureter, Via Natural or Artificial Opening Endoscopic (ICD-10-PCS; principal; 2024-07-01)
PROC: 0T788DZ Dilation of Bilateral Ureters with Intraluminal Device, Via Natural or Artificial Opening Endoscopic (ICD-10-PCS; 2024-07-01)
PROC: 0TC68ZZ Extirpation of Matter from Right Ureter, Via Natural or Artificial Opening Endoscopic (ICD-10-PCS; 2024-07-01)
DX: T83.511A Infection and inflammatory reaction due to indwelling urethral catheter, initial encounter (principal); E87.0 Hyperosmolality and hypernatremia; N13.6 Pyonephrosis; I69.951 Hemiplegia and hemiparesis following unspecified cerebrovascular disease affecting right dominant side; N17.9 Acute kidney failure, unspecified; N18.4 Chronic kidney disease, stage 4 (severe); I13.0 Hypertensive heart and chronic kidney disease with heart failure and stage 1 through stage 4 chronic kidney disease, or unspecified chronic kidney disease; N10 Acute pyelonephritis; G20.A1 Parkinson's disease without dyskinesia, without mention of fluctuations; D63.8 Anemia in other chronic diseases classified elsewhere; G40.909 Epilepsy, unspecified, not intractable, without status epilepticus; E03.9 Hypothyroidism, unspecified; F02.80 Dementia in other diseases classified elsewhere, unspecified severity, without behavioral disturbance, psychotic disturbance, mood disturbance, and anxiety; Y84.6 Urinary catheterization as the cause of abnormal reaction of the patient, or of later complication, without mention of misadventure at the time of the procedure; E21.3 Hyperparathyroidism, unspecified; I50.9 Heart failure, unspecified; E87.6 Hypokalemia; K56.41 Fecal impaction; E78.5 Hyperlipidemia, unspecified; Z90.710 Acquired absence of both cervix and uterus; Z93.1 Gastrostomy status; Z79.899 Other long term (current) drug therapy
CPT/HCPCS: 36415; 36416; 51702; 74176; 74420; 80048; 80053; 81001; 82306; 83605; 83735; 83970; 84132; 84295; 85025; 86141; 87077; 87086; 87186; 96374; 97139; C1747; C2617; J1644; J1815; J2543; J2704; J3370; J3475; J3490; J7030; J7042; J7070; Q9967